=== PATIENT | female | born 2000 | race Caucasian/White ===

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

== ENCOUNTER → 2023-06-26 | Outpatient (REF) | payer OTHER | LOC: M LAB REF 12:50 | PROVIDERS: ATTEND Nurse Practitioner Family | DX: R19.7 Diarrhea, unspecified (principal) ==

== ENCOUNTER → 2023-07-25 | Outpatient (CLI) | payer OTHER | LOC: M LAB 10:44 | PROVIDERS: ATTEND Nurse Practitioner Family | DX: R14.0 Abdominal distension (gaseous) (principal) ==

== ENCOUNTER 2024-01-13 07:07 | Day surgery (SDC) | payer OTHER ==
[~2024-01-13] VITALS: Ht 157.5 cm; Wt 51.7 kg
[~2024-01-13 07:07] MED LIST: propofoL 200 MG/20 ML VIAL As Ordered ONE
[2024-01-13 09:04] VITALS: TEMP 97.1
[2024-01-13 09:22] VITALS: BP 121/69; O2SAT 98
== END 2024-01-13 09:32 | disposition home or self-care (01) ==
LOC: M OPP 07:07
PROVIDERS: ATTEND Internal Medicine Gastroenterology
DX: K62.89 Other specified diseases of anus and rectum (principal); K92.1 Melena; R19.4 Change in bowel habit; F17.290 Nicotine dependence, other tobacco product, uncomplicated; Z88.1 Allergy status to other antibiotic agents; Z91.030 Bee allergy status; Z91.040 Latex allergy status; Z91.048 Other nonmedicinal substance allergy status